=== PATIENT | male | born 1955 | race Caucasian/White ===

== ENCOUNTER 2016-04-10 12:42 | Inpatient (IN) | payer BC ==
--- NOTE | ~2016-04-10 | CN ---
Consultation Report [facility] [address] [place]. [address] NAME: BAILEY KOO : 51 STATUS : ADM IN PAT#: [id number] AGE: 60 ADM/REG DATE : 04/10/16 MR#: [id number] REPORT SERV DATE: 04/13/16 DICTATED BY: GLENDY PRABHAKAR DATE: 04/12/16 REPORT STATUS : Draft TRANSCRIBED BY: MODCorina DATE: 04/12/16 DATE OF CONSULTATION: CHIEF COMPLAINT: Abdominal pain with abdominal swelling and edema of the legs. HISTORY OF PRESENT ILLNESS: Bailey Koo is a 60-year-old, male with a history of adenocarcinoma of the lungs with prior lobectomy under the care of Dr. Catalan who has metastasis to the lymph nodes, and thyroid gland. The patient noted that over the past 6 weeks he is getting swelling in his abdomen with a gain of about 20 pounds with some shortness of breath and palpitations. He denies any fever, any joint pains. He admits to drinking alcohol for several years, stopped about two years ago. ALLERGIES: TO PENICILLIN, JOHN INHIBITOR, SULFA, ERYTHROMYCIN. HOME MEDICATIONS: Vitamin E, fish oil, pravastatin, Protonix, Roxicodone, albuterol, amlodipine, vitamin B12, vitamin D, and folic acid. REVIEW OF SYSTEMS: The patient complains of shortness of breath, edema of the legs, and swelling of the abdomen for the past 6 weeks. Denies any alcohol use. Denies any other problems. PAST MEDICAL HISTORY: Significant for COPD, hypertension, hyperlipidemia, possible diabetes mellitus type 2, has adenocarcinoma of the lung with metastasis in the thyroid gland, has had a lobectomy done. PAST SURGICAL HISTORY: Significant for lobectomy of the right lung, gallbladder removal, nasal septal repair, has had a colonoscopy about two years ago and was found to have about three polyps, has a history of fracture of the T6, T9, and T12 vertebrae. SOCIAL HISTORY: History of smoking but quit in 2011, has a history of alcohol use for several years. Stopped alcohol about two years ago. FAMILY HISTORY: Significant for coronary artery disease and cancer. PHYSICAL EXAMINATION: VITAL SIGNS: Temperature is normal. BP is 130/80. Peripheral pulses are well felt. NECK: Supple. Trachea is central. Carotids are well felt on both sides. CARDIOVASCULAR SYSTEM: S1 and S2 are heard. LUNGS: Trachea is central. Clear breath sounds are heard. LYMPH NODES: There are some lymph nodes palpable in the right side. ABDOMEN: Abdomen is distended. Liver is about 6-8 cm. Spleen is palpable. There is no other mass palpable, has ascites. MENTAL RETARDATION NURSE: Higher function, cranial nerves, and reflexes are normal. LAB: Show a WBC count of 4.3, hemoglobin hematocrit 11 and 34.1, AST and ALT are 53 and 26. Consultation Report [address] [address] NAME: BAILEY OKO : 53 STATUS : ADM IN PAT#: [id number] AGE: 60 ADM/REG DATE : 04/10/16 MR#: [id number] REPORT SERV DATE: 04/13/16 DICTATED BY: GLENDY PRABHAKAR DATE: 04/12/16 REPORT STATUS : Draft TRANSCRIBED BY: MODL DATE: 04/12/16 Sodium is 139, potassium is 3.8. BUN is 5 and creatinine is 0.72. A CT scan of the abdomen which shows ascites with cirrhotic changes in the liver, nodular densities in the lung bases, and has cystic bronchiectasis. IMPRESSION: 1. 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 2. Ascites with peripheral edema. 3. Possible diabetes mellitus type 2. 4. Lung cancer with metastasis in the thyroid. 5. Chronic obstructive pulmonary disease. 6. Hypertension. 7. Obesity. 8. Anemia. 9. Cellulitis of the abdominal wall. 10.Thyroid with metastasis. 11.Bipolar disorder. 12.Vitamin D deficiency. PLAN: Blood for hepatitis A, B, and C antibodies, alpha fetoprotein, iron TIBC, ferritin, Hemoccult stools. Discontinue oxycodone. Tramadol 50 mg p.o. t.i.d.; Protonix 40 mg p.o. b.i.d.; Lasix 40 mg p.o. daily 80 mg on Saturday, Saturday, and Saturday; Aldactone 100 mg p.o. b.i.d. and lactulose 30 mL p.o. b.i.d. Low salt, diabetic diet. FERNANDO/MODL Glendy Prabhakar M.D. / [id number] CC: MD Danielle Carr APN
--- NOTE | ~2016-04-10 | DS ---
Discharge Summary [facility] [address] [place]. [address] NAME: BAILEY QUESADA : 51 STATUS : DIS IN PAT#: [id number] AGE: 60 ADM/REG DATE : 04/10/16 MR#: [id number] REPORT SERV DATE: 04/13/16 DICTATED BY: MICHAEL MENA DATE: 04/13/16 REPORT STATUS : Draft TRANSCRIBED BY: MODL DATE: 04/13/16 ADMISSION DATE: 04/10/2016 DISCHARGE DATE: 04/13/2016 CHIEF COMPLAINT: Abdominal pain and swelling. DISCHARGING DIAGNOSES: 1. Cirrhosis of the liver, likely secondary to alcohol. 2. Ascites with peripheral edema. 3. History of lung cancer with metastases to the thyroid. 4. Obesity. 5. Hypertension. 6. History of chronic obstructive pulmonary disease. HISTORY OF PRESENT ILLNESS: Please see full H and P by Dr. Epps for details regarding initial presentation. HOSPITAL COURSE: 1. Liver cirrhosis which is a new diagnosis. The patient presents with ascites and peripheral edema. He was admitted to the hospital, had paracentesis of approximately 6 L. In addition, he was started on Aldactone and Lasix. At this point, he has not tolerated the addition of lactulose which was added by Dr. Dyson. This caused nausea and vomiting. We will not have additional therapies at this time given he has not had issues with hyperammonemia at this point. He can follow up with Dr. Dyson as an outpatient closely to determine if additional treatment such as rifaximin is needed at this time. Given the new addition of Lasix and Aldactone, we will have him follow up with primary care. In the interim, he will need blood work at this appointment. We have counseled him on cessation of alcohol as well as oxycodone; however, he has declined changing to tramadol given his issues with previous difficulty getting his pain controlled. 2. Chronic pain. The patient is adamant about continuing his oxycodone. He can discuss this with outpatient providers. 3. History of lung cancer with prior lobectomy and chemo. He can follow up with Dr. Catalan as previously scheduled. 4. Hypertension. We will hold his Norvasc at this time given addition of Aldactone and Lasix and followup with primary care. 5. Diet-controlled pre diabetes. Follow up with primary care. 6. COPD. Continue outpatient regimen. 7. Hypoalbuminemia likely due to cirrhosis. Again the patient will be on diuretics and follow up with outpatient, Dr. Dyson. 8. Hypothyroidism. Continue outpatient levothyroxine. 9. Obesity. His BMI is 38. DISCHARGE MEDICATIONS: Lasix 40 mg daily; Aldactone 50 mg b.i.d.; vitamin B12, vitamin D; Protonix 40 mg daily; pravastatin 40 mg daily; vitamin E; Roxicodone 15 mg 4 times a day; folic acid 1 mg daily; albuterol p.r.n.; and fish oil 2400 p.o. daily. Discharge Summary [address] [address] NAME: BAILEY QUESADA : 53 STATUS : DIS IN PAT#: [id number] AGE: 60 ADM/REG DATE : 04/10/16 MR#: [id number] REPORT SERV DATE: 04/13/16 DICTATED BY: MICHAEL MENA DATE: 04/13/16 REPORT STATUS : Draft TRANSCRIBED BY: DORINA DATE: 04/13/16 PERTINENT IMAGIN. This admission included CT abdomen and pelvis without contrast which showed moderate to large amount of ascites throughout the abdomen and pelvis. Cirrhotic appearance of the liver with splenomegaly. There is also enlargement of the main portal vein up to 15 mm compatible with portal hypertension. 2. Diffuse subcutaneous edema with more localized edema in the periumbilical region, possibly representing some localized cellulitis. There is a small fluid-containing umbilical hernia without bowel involvement. 3. Multiple nodular densities at the lung bases several for which are centrally aerated and some areas have the appearance of cystic bronchiectasis. The largest discrete solid nodule appears up to 5 x 11 mm in the left lower lobe. Suggest followup CT scan of chest for further evaluation when clinically appropriate. Although the images are currently not available for comparison, these findings are not described on a CT scan in 2014. DISPOSITION: Home. FOLLOWUP: Follow up will be with primary care in 5 to 7 days; Dr. Dyson hopefully in 2 to 3 weeks; and then Dr. Catalan as previously scheduled. Time spent on discharge is greater than 30 minutes. COURTNEY/DORINA Michael Mena MD / [id number] CC: MD FREDERIC Carr
--- NOTE | ~2016-04-10 | HP ---
History And Physical [address] [place]. [address] NAME: BAILEY QUESADA : 51 STATUS : ADM IN PAT#: [id number] AGE: 60 ADM/REG DATE : 04/10/16 MR#: [id number] REPORT SERV DATE: 04/10/16 DICTATED BY: MATTI VINCENT DATE: 04/10/16 REPORT STATUS : Draft TRANSCRIBED BY: MODL DATE: 04/10/16 DATE OF ADMISSION: 04/10/2016 CHIEF COMPLAINT: Abdominal pain and abdominal swelling. HISTORY OF PRESENT ILLNESS: The patient is a 60-year-old male with past medical history of adenocarcinoma of lungs with prior lobectomy, still under care of Dr. Catalan, prior chemo, but does have metastases to lymph nodes and thyroid per the patient, who reports that over the last six weeks he has noticed that he has had increased stomach swelling, thought it was due to indigestion and taken [id number] medications without improvement, but he has also noted approximately 20-pound weight gain since his last PCP visits. Since then, he has also noted with intermittent abdominal pain as a moderate with cramping severity, no radiation, but has had nausea and vomiting, decreased p.o. intake and with shortness of breath, fever, chills, wheezing, cough, worsened with palpation. No relieving symptoms. Symptom is still currently worse as the patient has had increased swelling. He was told that he had gas symptoms at outside facility, but here noted to have possible new diagnosis of cirrhosis on imaging with positive fluid wave. No signs of peritonitis at this time. No GI history. Has stopped smoking in 2011 and last alcohol use approximately two years ago. No prior hepatitis history that the patient recalls. ALLERGIES: PENICILLIN, JOHN INHIBITOR, SULFA, ERYTHROMYCIN. HOME MEDICATIONS: Albuterol, amlodipine, vitamin B12, vitamin D, folic acid, Roxicodone, Protonix, pravastatin, vitamin E, and fish oil. ADDITIONAL REVIEW OF SYSTEMS: A 10-point review of systems negative except that noted in the HPI. PAST MEDICAL HISTORY: COPD, hypertension, hyperlipidemia, headache, reflux, history of bipolar, type 2 diabetes, however, the patient reports this is all possible prediabetic as the patient is only diet controlled and has not required any medication. Blood sugars typically range less than 120. Has had adenocarcinoma, lung cancer with surgical history of lobectomy, gallbladder, and nasal septal repair and skin cancer removal. The patient has had history of T6, T9, and T12 broken bones. SOCIAL HISTORY: Prior smoking history, but quit in 2011. Last alcohol use was two years ago and no illicits. FAMILY HISTORY: Heart disease and cancer. The patient is unknown what kind of cancers. The patient's PCP is nurse practitioner, Danielle Joaquin. PHYSICAL EXAMINATION: VITAL SIGNS: The patient's blood pressure 132/71, temperature 98, pulse 97, respirations 16, O2 saturations 98% on room air. GENERAL: No acute distress. Calm, pleasant, obese, well developed, well nourished. History And Physical [address] [address] NAME: BAILEY QUESADA : 53 STATUS : ADM IN [facility]#: [id number] AGE: 60 ADM/REG DATE : 04/10/16 MR#: [id number] REPORT SERV DATE: 04/10/16 DICTATED BY: MATTI VINCENT DATE: 04/10/16 REPORT STATUS : Draft TRANSCRIBED BY: DORINA DATE: 04/10/16 EYES: No scleral icterus. EOMI. ENT: Nares patent. Tongue midline. Moist mucous membranes. RESPIRATORY: Clear to auscultation. No wheezes or rales. CV: Regular rate. No rubs or gallops. GI: Soft, mildly distended. Does have a positive fluid wave with cellulitic changes on anterior lower abdomen without welts. Bowel sounds are still positive, but distant. Negative rebound. : Deferred. MUSCULOSKELETAL: Moves all extremities x4, but does have edema in bilateral lower extremities. SKIN: Warm and dry. LYMPH: Does have cervical lymph node enlargement on the right side visible and palpable and bilateral leg edema of 1+. HEME: No bleeding or bruising. NEURO: Alert and oriented. Moves all extremities x4. PSYCH: Appropriate mood and affect. Sensation is grossly intact. No asterixis. MENTAL STATUS: Normal vocal pablo. Symmetrical smile. Tongue midline. LABORATORY DATA: BNP 68. CT abdomen and pelvis, moderate amount of ascites, cirrhotic changes in liver with main portal vein up to 15 mm, subcutaneous edema, localized cellulitis. Nodular densities in lung bases, several, which are essentially aerated with cystic bronchiectasis. CMP revealed a sodium of 139, potassium 3.8, chloride 105, bicarb 29, BUN and creatinine 5 and 0.72, glucose 123. AST and ALT 53 and 26, lipase 68, alkaline phosphatase 148 to 140, globulin 3.6, and albumin 2.2. CBC: WBC count 4.3, H and H 11 and 34.1, platelets 149. EKG: None currently on chart. ASSESSMENT AND PLAN: 1. Abdominal studies. 2. Likely new cirrhosis. 3. Lung cancer with reported metastatic history, prior lobectomy and status post chemo. Followed by Dr. Catalan of [facility]. 4. Hypertension. 5. Likely pre-diabetes history. 6. Chronic obstructive pulmonary disease history. 7. Hyperlipidemia. 8. Bipolar history. 9. Hypoalbuminemia. 10.Anemia. 11.Thyroid metastases per the patient. 12.Cellulitis on abdominal wall. PLAN: 1. For abdominal ascites, GI consult. Check hepatitis panel. No prior history. Last History And Physical [address] [address] NAME: BAILEY QUESADA : 51 STATUS : ADM IN PAT#: [id number] AGE: 60 ADM/REG DATE : 04/10/16 MR#: [id number] REPORT SERV DATE: 04/10/16 DICTATED BY: MATTI VINCENT DATE: 04/10/16 REPORT STATUS : Draft TRANSCRIBED BY: MODCorina DATE: 04/10/16 ETOH use or alcohol use over two years ago, but did have prior alcohol history. No peritoneal signs or symptoms currently at this time. 2. Cirrhosis. Check hepatitis panel and LFTs. Has noted a 20-pound weight gain. Has not had fluid restriction prior to this. There is no prior diagnosis of cirrhosis. We will have GI evaluate, paracentesis, IR evaluation. 3. Lung cancer. Prior lobectomy, chemo. Does have positive fluid and cirrhosis. Follow up with Dr. Catalan with [facility]. 4. Hypertension. On medications. We will continue to monitor. 5. Pre-diabetes. Diet controlled. Blood sugar was typically less than 120. Monitor before meals and h.s. and discontinue Accu-Cheks if remains stable. 6. Chronic obstructive pulmonary disease, non-O2 dependent. Does take p.r.n. albuterol, p.r.n. medications. Quit tobacco in 2011. 7. Hyperlipidemia. Diet and medication controlled. 8. Bipolar history, appears stable at this time. 9. Hypoalbuminemia, likely secondary to abdominal ascites. Workup for underlying possible new cirrhosis. 10.Anemia. Monitor iron studies. 11.Thyroid medications per the patient with lymph node involvement. We will check TSH. 12.Cellulitis changes. The patient is allergic to multiple medications including sulfa and penicillins with welt history. We will start with clindamycin and monitor clinical signs and symptoms. All questions answered of the patient and family. I anticipate greater than two midnight inpatient stay. DDN/MODL Matti Vincent MD / [id number] CC: MD FRANK Miramontes BRENDA L
[2016-04-10 12:16] LABS: BASOPHILS 0.2 %; BASOPHILS ABSOLUTE 0.01 10/3/uL (0.0-0.16); EOSINOPHILS 0.7 %; EOSINOPHILS ABSOLUTE 0.03 10/3/uL (0.0-0.53); IMMATURE GRANULOCYTES 0.2 %; IMMATURE GRANULOCYTES ABSOLUTE 0.01 10/3/uL (0.0-0.11); LYMPHOCYTES 25.8 %; MEAN CORPUS HGB CONC 32.3 g/dL (32.0-36.0); MEAN CORPUSCULAR HEMOGLOB 28.9 pg (26.0-34.0); MEAN CORPUSCULAR VOLUME 89.7 fL (80-100); MEAN PLATELET VOLUME 10.7 fL (9.2-13.0); MONOCYTES 12.9 %; MONOCYTES ABSOLUTE 0.55 10/3/uL (0.21-1.20); NEUTROPHILS 60.2 %; NEUTROPHILS ABSOLUTE 2.56 10/3/uL (2.02-8.40); PLATELET COUNT 149 10/3/uL (150-400); RBC DISTRIBUTION WIDTH 16.7 % (12.0-16.0); WHITE BLOOD CELLS 4.3 10/3/uL (4.5-10.5)
[2016-04-10 12:18] LABS: ER CBC TAT 0 Hrs 04 MinsNP; HEMATOCRIT 34.1 % (40.0-51.0); MANUAL DIFF NO %
[2016-04-10 12:33] LABS: A/G RATIO 0.6 (0.7-1.9); ALBUMIN 2.2 G/DL (3.5-5.0); ALKALINE PHOSPHATASE 140 U/L (45-117); BUN (BLOOD UREA NITROGEN) 5 MG/DL (6-23); CALCIUM, SERUM 8.7 MG/DL (8.5-10.4); CHLORIDE, SERUM 105 MMOL/L (96-112); CO2 (CARBON DIOXIDE) 29 MMOL/L (24-34); CREATININE 0.72 MG/DL (0.70-1.30); GFR AFRICAN AMERICAN 116 ML/MIN (>=60); GFR NON AFRICAN AMERICAN 100 ML/MIN (>=60); GLOBULIN 3.6 G/DL (2.5-4.1); GLUCOSE, SERUM 123 MG/DL (60-99); POTASSIUM, SERUM 3.8 MMOL/L (3.5-5.3); SGOT(AST) 53 U/L (5-40); SGPT(ALT) 26 U/L (5-65); SODIUM, SERUM 139 MMOL/L (135-148); TOTAL BILIRUBIN 0.8 MG/DL (0-1.2); TOTAL PROTEIN 5.8 G/DL (6.0-8.5)
[~2016-04-10 12:42] MED LIST: FOLIC PO; NORV5 PO; PRAVACHOL40 MG PO; PROTONIX PO; SEV VITAMINS; VENTOLIN HFA INH; VITAMIN B 12 IM
[2016-04-10] MEDS ORDERED: NORV5 PO (15:43)
[2016-04-10] MEDS ORDERED: ROXICODONE15 MG PO (15:44)
[2016-04-10] MEDS ORDERED: B121000P IM (15:48)
[2016-04-10] MEDS ORDERED: VITD PO (15:49)
[2016-04-10] MEDS ORDERED: PROAIR HFA INH (15:49)
[2016-04-10] MEDS ORDERED: PRAVACHOL40 MG PO (15:49)
[2016-04-10] MEDS ORDERED: FOLIC PO (15:49)
[2016-04-10] MEDS ORDERED: VITE1000 PO (15:54)
[2016-04-10] MEDS ORDERED: FISH OIL PO (15:54)
[2016-04-10] MEDS ORDERED: PROTONIX PO (15:55)
[2016-04-10 18:36] LABS: WBC (NOT ORDERED) (RFLEX) 0 (0-5)
[2016-04-10 18:45] LABS: ASCORBIC ACID (UR NOT ORDER) NEG (NEG); BILIRUBIN, URINE NEGATIVE (NEG); KETONE, URINE TRACE MG/DL (NEG); LEUKOCYTE ESTERASE(NOT OR NEG (NEG)
[2016-04-10 19:00] LABS: BASOPHILS 0.3 %; BASOPHILS ABSOLUTE 0.01 10/3/uL (0.0-0.16); EOSINOPHILS 1.3 %; EOSINOPHILS ABSOLUTE 0.05 10/3/uL (0.0-0.53); HEMATOCRIT 35.1 % (40.0-51.0); HEMOGLOBIN 11.1 g/dL (13.6-17.8); IMMATURE GRANULOCYTES 0.3 %; IMMATURE GRANULOCYTES ABSOLUTE 0.01 10/3/uL (0.0-0.11); LYMPHOCYTES 29.4 %; LYMPHOCYTES ABSOLUTE 1.17 10/3/uL (0.67-4.30); MEAN CORPUS HGB CONC 31.6 g/dL (32.0-36.0); MEAN CORPUSCULAR HEMOGLOB 28.6 pg (26.0-34.0); MEAN CORPUSCULAR VOLUME 90.5 fL (80-100); MEAN PLATELET VOLUME 10.1 fL (9.2-13.0); MONOCYTES 13.6 %; MONOCYTES ABSOLUTE 0.54 10/3/uL (0.21-1.20); NEUTROPHILS 55.1 %; PLATELET COUNT 150 10/3/uL (150-400); RBC DISTRIBUTION WIDTH 16.8 % (12.0-16.0); RED CELL COUNT 3.88 10/6/uL (4.7-6.1)
[2016-04-10 19:02] LABS: MANUAL DIFF NO %
[2016-04-10 19:24] LABS: % IRON SAT 16 % (20-50); A/G RATIO 0.6 (0.7-1.9); ALBUMIN 2.1 G/DL (3.5-5.0); ALKALINE PHOSPHATASE 133 U/L (45-117); BUN (BLOOD UREA NITROGEN) 6 MG/DL (6-23); CALCIUM, SERUM 9.1 MG/DL (8.5-10.4); CHLORIDE, SERUM 104 MMOL/L (96-112); CO2 (CARBON DIOXIDE) 30 MMOL/L (24-34); CREATININE 0.67 MG/DL (0.70-1.30); FERRITIN 167 NG/ML (26-388); GFR AFRICAN AMERICAN 119 ML/MIN (>=60); GFR NON AFRICAN AMERICAN 103 ML/MIN (>=60); GLOBULIN 3.8 G/DL (2.5-4.1); IRON BINDING CAPACITY 195 MCG/DL (250-450); IRON, SERUM 32 MCG/DL (35-150); PHOSPHORUS, SERUM 2.6 MG/DL (2.5-4.5); POTASSIUM, SERUM 3.9 MMOL/L (3.5-5.3); SGOT(AST) 51 U/L (5-40); SGPT(ALT) 25 U/L (5-65); SODIUM, SERUM 140 MMOL/L (135-148); TOTAL BILIRUBIN 0.9 MG/DL (0-1.2); TOTAL PROTEIN 5.9 G/DL (6.0-8.5)
[2016-04-10 19:27] LABS: GLUCOSE, SERUM 97 MG/DL (60-99)
[2016-04-10 20:15] LABS: PROCALCITONIN 0.26 ng/mL (<0.5)
[2016-04-11 06:35] LABS: BASOPHILS 0.5 %; BASOPHILS ABSOLUTE 0.02 10/3/uL (0.0-0.16); EOSINOPHILS 1.7 %; EOSINOPHILS ABSOLUTE 0.07 10/3/uL (0.0-0.53); HEMATOCRIT 32.5 % (40.0-51.0); HEMOGLOBIN 10.3 g/dL (13.6-17.8); IMMATURE GRANULOCYTES 0.2 %; IMMATURE GRANULOCYTES ABSOLUTE 0.01 10/3/uL (0.0-0.11); LYMPHOCYTES 32.5 %; LYMPHOCYTES ABSOLUTE 1.37 10/3/uL (0.67-4.30); MEAN CORPUS HGB CONC 31.7 g/dL (32.0-36.0); MEAN CORPUSCULAR HEMOGLOB 28.5 pg (26.0-34.0); MEAN PLATELET VOLUME 10.4 fL (9.2-13.0); MONOCYTES 17.5 %; MONOCYTES ABSOLUTE 0.74 10/3/uL (0.21-1.20); NEUTROPHILS 47.6 %; NEUTROPHILS ABSOLUTE 2.01 10/3/uL (2.02-8.40); PLATELET COUNT 153 10/3/uL (150-400); RBC DISTRIBUTION WIDTH 16.8 % (12.0-16.0); RED CELL COUNT 3.61 10/6/uL (4.7-6.1); WHITE BLOOD CELLS 4.2 10/3/uL (4.5-10.5)
[2016-04-11 06:36] LABS: MANUAL DIFF NO %
[2016-04-11 06:46] LABS: A/G RATIO 0.5 (0.7-1.9); ALBUMIN 1.9 G/DL (3.5-5.0); ALKALINE PHOSPHATASE 125 U/L (45-117); BUN (BLOOD UREA NITROGEN) 6 MG/DL (6-23); CALCIUM, SERUM 8.9 MG/DL (8.5-10.4); CHLORIDE, SERUM 104 MMOL/L (96-112); CO2 (CARBON DIOXIDE) 29 MMOL/L (24-34); CREATININE 0.75 MG/DL (0.70-1.30); DIRECT BILIRUBIN 0.2 MG/DL (0.0-0.4); GFR AFRICAN AMERICAN 114 ML/MIN (>=60); GFR NON AFRICAN AMERICAN 98 ML/MIN (>=60); GLOBULIN 3.5 G/DL (2.5-4.1); GLUCOSE, SERUM 104 MG/DL (60-99); INDIRECT BILIRUBIN(NOT ORDER) 0.8 MG/DL (0.1-0.9); POTASSIUM, SERUM 3.7 MMOL/L (3.5-5.3); SGOT(AST) 44 U/L (5-40); SGPT(ALT) 23 U/L (5-65); SODIUM, SERUM 142 MMOL/L (135-148); TOTAL PROTEIN 5.4 G/DL (6.0-8.5)
[2016-04-11 08:23] LABS: INTERNATIONAL NORMAL RATI 1.4 UNITS (-); PROTIME (NOT ORD) 17.1 SEC (12.0-14.5)
[2016-04-11 08:32] LABS: ALBUMIN 1.9 G/DL (3.5-5.0); TOTAL PROTEIN 5.4 G/DL (6.0-8.5)
[2016-04-12 10:38] LABS: BUN (BLOOD UREA NITROGEN) 7 MG/DL (6-23); CALCIUM, SERUM 8.6 MG/DL (8.5-10.4); CHLORIDE, SERUM 101 MMOL/L (96-112); CO2 (CARBON DIOXIDE) 30 MMOL/L (24-34); CREATININE 0.71 MG/DL (0.70-1.30); GFR AFRICAN AMERICAN 117 ML/MIN (>=60); GFR NON AFRICAN AMERICAN 101 ML/MIN (>=60); GLUCOSE, SERUM 138 MG/DL (60-99); POTASSIUM, SERUM 3.9 MMOL/L (3.5-5.3); SODIUM, SERUM 140 MMOL/L (135-148)
[2016-04-12 20:16] LABS: INTERNATIONAL NORMAL RATI 1.4 UNITS (-); PARTIAL THROMBO TIME 40.3 SEC (22.5-37.2); PROTIME (NOT ORD) 17.3 SEC (12.0-14.5)
[2016-04-12 20:26] LABS: ALPHA FETOPROTEIN (TUMOR) 9.8 NG/ML (< 8.0)
[2016-04-13 05:34] LABS: BUN (BLOOD UREA NITROGEN) 7 MG/DL (6-23); CALCIUM, SERUM 8.6 MG/DL (8.5-10.4); CHLORIDE, SERUM 104 MMOL/L (96-112); CO2 (CARBON DIOXIDE) 30 MMOL/L (24-34); CREATININE 0.79 MG/DL (0.70-1.30); GFR AFRICAN AMERICAN 112 ML/MIN (>=60); GFR NON AFRICAN AMERICAN 96 ML/MIN (>=60); GLUCOSE, SERUM 118 MG/DL (60-99); POTASSIUM, SERUM 3.9 MMOL/L (3.5-5.3); SODIUM, SERUM 141 MMOL/L (135-148)
[2016-04-13 09:30] LABS: HEPATITIS B SURFACE ANTIGEN NON-REACTIVE (NON-REACT)
[2016-04-13 09:55] LABS: HEPATITIS C ANTIBODY NON-REACTIVE (NON-REACT)
[2016-04-13 09:56] LABS: HEPATITIS B CORE AB IGM NON-REACTIVE (NON-REAC)
[2016-04-13 09:58] LABS: HEP A ANTIBODY IGM NON-REACTIVE (NON-REACT)
[2016-04-13] MEDS ORDERED: SPIRO50 PO (11:42)
[2016-04-13] MEDS ORDERED: L40 PO (11:42)
== END 2016-04-13 12:09 | disposition home or self-care (01) | DRG 433 ==
LOC: ER 12:42 → 4EA 16:23
PROVIDERS: Internal Medicine; Internal Medicine Gastroenterology; Physician Assistant; Student in an Organized Health Care Education/Training Program
PROC: 0W9G30Z Drainage of Peritoneal Cavity with Drainage Device, Percutaneous Approach (ICD-10-PCS; principal; 2016-04-11)
DX: K70.31 Alcoholic cirrhosis of liver with ascites (principal); C34.90 Malignant neoplasm of unspecified part of unspecified bronchus or lung; C77.9 Secondary and unspecified malignant neoplasm of lymph node, unspecified; C79.89 Secondary malignant neoplasm of other specified sites; E88.09 Other disorders of plasma-protein metabolism, not elsewhere classified; Z68.41 Body mass index [BMI] 40.0-44.9, adult; J44.9 Chronic obstructive pulmonary disease, unspecified; L03.311 Cellulitis of abdominal wall; I10 Essential (primary) hypertension; E78.5 Hyperlipidemia, unspecified; F31.9 Bipolar disorder, unspecified; E66.9 Obesity, unspecified
CPT/HCPCS: 49083; 71010; 74176; 80048; 80053; 80074; 81001; 82040; 82105; 82140; 82248; 82272; 82728; 82962; 83036; 83540; 83550; 83605; 83690; 83735; 83880; 84100; 84145; 84155; 84443; 85025; 85610; 85730; 87040; 99285; A9270-GY; J2405

== ENCOUNTER 2016-06-07 22:43 | Emergency (ER) | payer BC ==
[2016-06-07 18:48] LABS: BASOPHILS 0 %; EOSINOPHILS 0.5 %; EOSINOPHILS ABSOLUTE 0.01 10/3/uL (0.0-0.53); HEMOGLOBIN 9.2 g/dL (13.6-17.8); LYMPHOCYTES 51.4 %; LYMPHOCYTES ABSOLUTE 0.94 10/3/uL (0.67-4.30); MEAN CORPUS HGB CONC 32.6 g/dL (32.0-36.0); MEAN CORPUSCULAR HEMOGLOB 28.4 pg (26.0-34.0); MONOCYTES ABSOLUTE 0.53 10/3/uL (0.21-1.20); NEUTROPHILS 19.1 %; NEUTROPHILS ABSOLUTE 0.35 10/3/uL (2.02-8.40); RBC DISTRIBUTION WIDTH 15.9 % (12.0-16.0); RED CELL COUNT 3.24 10/6/uL (4.7-6.1)
[2016-06-07 18:50] LABS: ER CBC TAT 0 Hrs 10 Mins; HEMATOCRIT 28.2 % (40.0-51.0); PLATELET COUNT 104 10/3/uL (150-400); WHITE BLOOD CELLS 1.8 10/3/uL (4.5-10.5)
[2016-06-07 18:51] LABS: MANUAL DIFF NO %
[2016-06-07 18:55] LABS: INTERNATIONAL NORMAL RATI 1.4 UNITS (-); PROTIME (NOT ORD) 16.9 SEC (12.0-14.5)
[2016-06-07 19:03] LABS: BUN (BLOOD UREA NITROGEN) 10 MG/DL (6-23); CHEST PAIN PROFILE TAT 0 Hrs 23 Mins; CHLORIDE, SERUM 103 MMOL/L (96-112); CO2 (CARBON DIOXIDE) 26 MMOL/L (24-34); CREATININE 0.96 MG/DL (0.70-1.30); GFR AFRICAN AMERICAN 98 ML/MIN (>=60); GFR NON AFRICAN AMERICAN 84 ML/MIN (>=60); GLUCOSE, SERUM 136 MG/DL (60-99); SODIUM, SERUM 136 MMOL/L (135-148); TROPONIN I <0.02 NG/ML (<0.05)
[2016-06-07 19:18] LABS: EOSINOPHILS 2 %; EOSINOPHILS ABSOLUTE (CALC) 0.04 10/3/uL (0.0-0.53); ER DIFF TAT 0 Hrs 38 Mins; LYMPHOCYTES 39 %; MONOCYTES 29 %; MONOCYTES ABSOLUTE (CALC) 0.52 10/3/uL (0.21-1.20); NEUTROPHILS ABSOLUTE (CALC) 0.54 10/3/uL (2.02-8.40); SEGMENTED NEUTROPHIL (0) 30 %; TOTAL NUCLEATED CELLS 100
[2016-06-07 19:19] LABS: OVALOCYTES 1+ (3-10/OIF) (0-2/OIF); PLATELET ESTIMATE SLT DEC (ADEQUATE)
[~2016-06-07 22:43] MED LIST changes: +B121000P IM; +FISH OIL PO; +L40 PO; +PROAIR HFA INH; +ROXICODONE15 MG PO; +SPIRO50 PO; +VITD PO; +VITE1000 PO
== END 2016-06-07 23:53 | disposition home or self-care (01) ==
LOC: ER 22:43
PROVIDERS: Emergency Medicine
DX: J32.9 Chronic sinusitis, unspecified (principal); C34.92 Malignant neoplasm of unspecified part of left bronchus or lung; G43.909 Migraine, unspecified, not intractable, without status migrainosus; J44.9 Chronic obstructive pulmonary disease, unspecified; I10 Essential (primary) hypertension; K21.9 Gastro-esophageal reflux disease without esophagitis; F31.9 Bipolar disorder, unspecified; Z87.891 Personal history of nicotine dependence; Z88.0 Allergy status to penicillin; Z88.2 Allergy status to sulfonamides; Z88.1 Allergy status to other antibiotic agents; Z79.899 Other long term (current) drug therapy
CPT/HCPCS: 70450; 71020; 80048; 83735; 84484; 85025; 85610; 85730; 93005; 96372; 99285; A9270-GY; J1885

== ENCOUNTER 2016-07-24 09:05 | Inpatient (IN) | payer BC ==
--- NOTE | ~2016-07-24 | CN ---
Consultation Report [facility] [address] [place]. [address] NAME: BAILEY KOO : 51 STATUS : ADM IN PAT#: [id number] AGE: 60 ADM/REG DATE : 07/24/16 MR#: [id number] REPORT SERV DATE: 07/25/16 DICTATED BY: GLENDY PRABHAKAR DATE: 07/25/16 REPORT STATUS : Draft TRANSCRIBED BY: MODL DATE: 07/25/16 CONSULTATION DATE OF CONSULTATION: CURRENT COMPLAINTS: History of ascites secondary to alcohol with distention of the abdomen. HISTORY OF PRESENT ILLNESS: Mr. Koo is a pleasant 60-year-old gentleman who has a history of cirrhosis of the liver secondary to alcohol and ascites. He also has cancer of the lung with multiple medications and enlarging nodules, history of hypertension, hyperlipidemia, and some renal insufficiency, admitted with complaints of having progressive distention of the abdomen and some shortness of breath. Denies any abdominal pain. Has no nausea or vomiting. Has no diarrhea or melena. PREVIOUS MEDICAL HISTORY: Significant for malignant neoplasm of the upper lobes of the right bronchus and lungs, which is increasing in size; cirrhosis of the liver, probably secondary to alcohol; low back pain; anxiety; hypertension; hyperlipidemia. PAST SURGICAL HISTORY: None. ALLERGIES: JOHN INHIBITORS, ELLIPTA, ERYTHROMYCIN BASE, PENICILLIN, SPIRIVA HANDIHALER, AND SULFA ANTIBIOTICS. CURRENT MEDICATIONS: Amlodipine 5 mg once a day, calcitonin nasal spray, cyanocobalamin 1000 mcg/mL, cyclobenzaprine 10 mg per day, diazepam 5 mg one tablet q.12 hours, fish oil 1 capsule per day, folic acid 1 mg per day, inhaler 2 puffs q.12 hours, Lasix 40 mg per day, oxycodone 15 mg one tablet 4 times a day, pantoprazole sodium 40 mg p.o. per day, pravastatin 20 mg per day, Proventil inhaler, Seroquel 100 mg orally once a day, and Aldactone 50 mg per day. SOCIAL HISTORY: He smoked for about 30 years, stopped smoking about 4 years ago. He has been a drinker before, but currently has stopped drinking. FAMILY HISTORY: Significant for coronary artery disease, hypertension, and diabetes. REVIEW OF SYSTEMS: The patient complains feeling weak, having some shortness of breath, occasional breathing problems, has distention of the abdomen. Denies any nausea, vomiting, or diarrhea. PHYSICAL EXAMINATION: VITAL SIGNS: Blood pressure 120/60, temperature is normal, and pulse is 80 per minute. NECK: Supple. Trachea is central. Carotids well felt on both sides. ABDOMEN: Distended. Has ascites. Liver is not palpable. Spleen is palpable at about 4 cm below the left costal margin. Consultation Report [address] [place]. [address] NAME: BAILEY KOO : 51 STATUS : ADM IN [facility]#: [id number] AGE: 60 ADM/REG DATE : 07/24/16 MR#: [id number] REPORT SERV DATE: 07/25/16 DICTATED BY: GLENDY PRABHAKAR DATE: 07/25/16 REPORT STATUS : Draft TRANSCRIBED BY: DORINA DATE: 07/25/16 CARDIOVASCULAR SYSTEM: [place] is felt in the sixth intercostal space. S1 and S2 are heard. There is no murmur. GRAIN INSPECTOR: Higher function, cranial nerves, and reflexes are normal. LABORATORY DATA: Sodium is 135, potassium is 4.1, bicarb is 38, BUN is 10, creatinine is 0.88, glucose is 107. WBC count is 4.2, hemoglobin is 9.9, and platelet count is 103. TSH is 2.4. IMPRESSION: 1. Cirrhosis of the liver, probably secondary to alcohol. 2. Ascites. 3. Lung cancer with metastases. 4. Hypertension. 5. Vitamin D deficiency. 6. Hyperlipidemia. 7. Anemia. 8. Thrombocytopenia. PLAN: 1. Paracentesis fluid for analysis. 2. Salt-poor albumin 75 g IV after the paracentesis. 3. Lasix 40 mg p.o. every day and Aldactone 100 mg p.o. every day. 4. 2-g sodium diet. 5. Lactulose 30 mL p.o. b.i.d. FERNANDO/DORINA Glendy Prabhakar M.D. / [id number] CC: MD FRANK Pradhan BRENDA L
--- NOTE | ~2016-07-24 | DS ---
Discharge Summary [facility] [place]. [address] NAME: BAILEY QUESADA : 51 STATUS : ADM IN PAT#: [id number] AGE: 60 ADM/REG DATE : 07/24/16 MR#: [id number] REPORT SERV DATE: 07/26/16 DICTATED BY: POWER MABRY DATE: 07/26/16 REPORT STATUS : Draft TRANSCRIBED BY: MODL DATE: 07/26/16 ADMISSION DATE: 07/24/2016 DISCHARGE DATE: 07/26/2016 REASON FOR ADMISSION: Worsening ascites. HISTORY OF PRESENT ILLNESS: Please refer Dr. Denisa Thomas's history and physical dated 07/24/2016, for complete details regarding the patient's admission. In brief, the patient was admitted to the Hospitalist Service for management of his ascites. HOSPITAL COURSE: The patient had an uncomplicated hospital course. Dr. Thomas had admitted the patient, started him on IV Bumex and added oral Aldactone. Dr. Thomas had consulted Dr. Dyson for further recommendation. Dr. Dyson had recommended giving salt-poor albumin and arranged for interventional radiologist to perform a large volume paracentesis. The patient had 11.1 liters removed on 07/25/2016. He is feeling much better. The fluid analysis did not show any evidence of spontaneous bacterial peritonitis. The patient was requesting to go home. [facility] was consulted for his history of metastatic lung cancer. The patient initially had a CT scan of his abdomen and pelvis in the ER, which showed continued bilateral diffuse subcentimeter cavitary nodules with solid 1.4 cm nodule in the central left base; large volume ascites; splenomegaly; suspected underlying cirrhosis; chronic lumbar fractures. Therefore, Dr. Thomas had ordered a followup CT scan of the chest without contrast, which showed multiple bilateral pulmonary nodules consistent with metastases, some of these are cavitated. There is mediastinal and right axillary adenopathy, minimal right pleural fluid. There is some ascites. The patient has reached maximal hospitalization. He is requesting to go home. He is not on any oxygen, he feels great, no abdominal pain. No issues with hypotension after his large volume ascites. The patient will be discharged today in stable condition to follow up with Dr. Dyson and Dr. Catalan. DISCHARGE DIAGNOSES: 1. Alcoholic cirrhosis with ascites status post 11.1 liters removed from paracentesis. 2. Pancytopenia secondary to alcoholic cirrhosis with ascites. 3. Metastatic lung cancer. 4. Chronic obstructive pulmonary disease without exacerbation. 5. Hypertension. 6. Morbid obesity. PROCEDURES: Include CT scan of the abdomen and pelvis without contrast. CT scan of chest without contrast. CONSULTATION: Dr. Ackerman's, covering for Dr. Catalan and Dr. Dyson. DISCHARGE MEDICATIONS: Include amlodipine 5 mg once a day, vitamin B 1000 mcg every 30 days, vitamin D on Sundays, folic acid 1 mg daily, magnesium oxide 400 mg every morning, fish oil daily, Protonix 40 mg every morning, potassium chloride 10 mEq every morning, pravastatin 40 mg every morning, albuterol p.r.n., Roxicodone 15 mg p.r.n. pain, vitamin E, spironolactone Discharge Summary [address] [address] NAME: BAILEY QUESADA : 51 STATUS : ADM IN [facility]#: [id number] AGE: 60 ADM/REG DATE : 07/24/16 MR#: [id number] REPORT SERV DATE: 07/26/16 DICTATED BY: POWER MABRY DATE: 07/26/16 REPORT STATUS : Draft TRANSCRIBED BY: MODL DATE: 07/26/16 100 mg daily, diazepam 5 mg p.r.n., Mucinex p.r.n., magnesium citrate p.r.n., albuterol p.r.n., Lasix 40 mg once a day. Please note, the addition of Lasix and Aldactone and the discontinuation of torsemide. Spending over 30 minutes in discharge planning and coordination of care. DICTATED BY: MD WILLIAM Pradhan/ORENL Power Mabry MD / [id number] CC: MD FRANK Pradhan BRENDA L Jay Philippose, M.D. An Tran, MD
--- NOTE | ~2016-07-24 | HP ---
History And Physical [id number] [facility] [place]. [address] NAME: BAILEY QUESADA : 51 STATUS : ADM IN PAT#: [id number] AGE: 60 ADM/REG DATE : 07/24/16 MR#: [id number] REPORT SERV DATE: 07/24/16 DICTATED BY: DENISA COMER DATE: 07/24/16 REPORT STATUS : Draft TRANSCRIBED BY: MODL DATE: 07/24/16 DATE OF ADMISSION: 07/24/2016 CHIEF COMPLAINT: Increased abdominal distention and discomfort with peripheral edema and shortness of breath for a couple of weeks, getting progressively worse over the last week. HISTORY OF PRESENT ILLNESS: This is a very pleasant 60-year-old gentleman with past medical history consistent with lung adenocarcinoma with prior lobectomy, still under Dr. 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 At that time, he has seen Dr. Dyson and underwent also paracentesis that has been presenting today to [facility] with increasing abdominal distention, moderate discomfort and pain, no radiation, but the abdominal distention got progressively worse to the point that the patient presented today to [facility]. He was supposed to follow up with the GI doctor in [place] tomorrow. He does not know the name. However, due to the progressive of the symptoms, he came to [facility]. It is important to note that the patient has been discharged on diuretics in last hospitalization, but he has been experiencing like cramps, and as a result, he is not on any diuretics currently. The patient has no diarrhea, actually in fact constipation. No nausea or vomiting. He did have some decreased appetite as well as shortness of breath, but no fever, no chills, no cough, no sputum production, no other complaints. Mostly, the symptoms got progressively worse with his abdominal distention and leg swelling, and as a result that he has been presenting today to [facility], and after initial evaluation, Hospitalist Service has been asked for admission, further evaluation, and treatment. PAST MEDICAL HISTORY: Significant with cirrhosis of the liver secondary to EtOH with ascites, lung cancer with metastatic to the lymph nodes and thyroid, obesity, hypertension, prior history of COPD, pancytopenia, and hyperlipidemia. PAST SURGICAL HISTORY: Include right lobectomy, also cholecystectomy, skin cancer removal of the left wrist, and nasoseptal repair. SOCIAL HISTORY: He is a prior smoker, but he quit in 2011. He also has a history of EtOH abuse, but he quit about two years ago. No IV drugs. FAMILY HISTORY: Significant for heart disease and cancer. ALLERGIES: HE IS ALLERGIC TO JOHN, PENICILLIN, SULFA, ERYTHROMYCIN, LASIX, AND BUMEX. MEDICATIONS AT HOME: Include Proventil, Norvasc, vitamin B12, Valium, vitamin D, folic acid, Mucinex, magnesium oxide, Aleve, omega-3 fatty acid, Roxicodone, Protonix, potassium chloride, Pravachol, tocopherol, Demadex, magnesium citrate, and nasal over the counter. REVIEW OF SYSTEMS: A 14-point review of systems has been obtained and pertinent positive has been listed into History And Physical [address] [address] NAME: BAILEY QUESADA : 51 STATUS : ADM IN [facility]#: [id number] AGE: 60 ADM/REG DATE : 07/24/16 MR#: [id number] REPORT SERV DATE: 07/24/16 DICTATED BY: DENISA COMER DATE: 07/24/16 REPORT STATUS : Draft TRANSCRIBED BY: DORINA DATE: 07/24/16 the history of present illness. Otherwise, negative except those underlying above. PHYSICAL EXAMINATION: VITAL SIGNS: Currently, the patient is afebrile. Blood pressure is 130/72, heart rate 85, respiratory rate 20, and saturating 98% on room air. GENERAL: He is a very pleasant, well-developed, well-nourished gentleman, in no acute distress. He is alert and oriented x3. He is nonfocal. He follows commands appropriately. HEENT: Shows pupils equal, round, and reactive to light. Extraocular movements intact. NECK: No JVD. No lymphadenopathy. No thyromegaly appreciated. CHEST: Eval shows bilateral air entry. Clear anteroposterior. Decreased breath sounds bibasilarly. No wheezes, crackles, or rhonchi appreciated. CARDIOVASCULAR: Regular rate and rhythm. S1, S2 positive. No S3, no S4. No murmurs, rubs, or gallops appreciated. ABDOMEN: Soft, distended with obvious ascites and positive fluid wave. Bowel sounds are positive, distant. Nontender. No guarding. No rebound. EXTREMITIES: No clubbing, cyanosis. Plus edema. NEUROLOGIC: He is alert and oriented x3. He is nonfocal. He follows commands appropriately. LABORATORY DATA: Labs from today include sodium 137, potassium 4.4, chloride 104, CO2 of 28, BUN 9, creatinine 0.83, glucose is 164. His lipase is 87. Troponin is less than 0.02. His ammonia is 49. BNP 184.9. His lactate is 1.5. His white count is 3.6, hemoglobin 10.3, hematocrit 31.8, and platelets are 84. His INR is 1.4. His UA has been negative, and his CT of the abdomen and pelvis without contrast performed in the emergency room has shown that the patient has bilateral diffuse cavitary lung nodules with solid 1.4 cm in the central left base and large volume ascites with splenomegaly and suspected underlying cirrhosis and chronic compression fractures. ASSESSMENT: 1. This is a very pleasant 60-year-old gentleman with ascites and cirrhosis of the liver with peripheral edema. 2. Pancytopenia. 3. History of lung cancer with metastatic disease to the thyroid. 4. Hypertension. 5. History of chronic obstructive pulmonary disease. 6. Obesity. PLAN: 1. The patient is going to be admitted to Hospitalist Service. We are going to schedule paracentesis in the morning. In addition, I am going to start him on Bumex IV for right now and Aldactone. We are going to reconsult Dr. Dyson for further evaluation. We will continue Protonix. Strict I's and O's. Strict daily weights. Continue pain control as well. Continue supportive care. 2. Chronic pain. We will continue his oxycodone p.r.n. morphine as well. 3. History of lung cancer with prior lobectomy and chemotherapy. I am going to check a CT of the chest as well as consult [facility] for further recommendation. 4. History of hypertension. We will continue his Norvasc and provide p.r.n. hydralazine History And Physical [address] [address] NAME: BAILEY QUESADA : 51 STATUS : ADM IN [facility]#: [id number] AGE: 60 ADM/REG DATE : 07/24/16 MR#: [id number] REPORT SERV DATE: 07/24/16 DICTATED BY: DENISA COMER DATE: 07/24/16 REPORT STATUS : Draft TRANSCRIBED BY: DORINA DATE: 07/24/16 as needed. 5. COPD. We will provide nebulizer p.r.n. 6. History of hypothyroidism. We are going to check a TSH and a free T4 right now. 7. Obesity. 8. We are going to provide reasonable pain and nausea control as well as GI and DVT prophylaxis with SCDs. That has been discussed extensively with the patient. All the questions have been answered in full. The patient is remaining full code according to prior wishes well stated. It is worthwhile to note that the patient is going to be followed up by Dr. Frank Oliveira. CF/DORINA Denisa Comer M.D. / [id number] CC: MD FRANK Pradhan BRENDA L
[2016-07-24 09:59] LABS: BASOPHILS 0.3 %; BASOPHILS ABSOLUTE 0.01 10/3/uL (0.0-0.16); EOSINOPHILS 0.8 %; EOSINOPHILS ABSOLUTE 0.03 10/3/uL (0.0-0.53); HEMOGLOBIN 10.3 g/dL (13.6-17.8); IMMATURE GRANULOCYTES 0.3 %; IMMATURE GRANULOCYTES ABSOLUTE 0.01 10/3/uL (0.0-0.11); LYMPHOCYTES 21.1 %; LYMPHOCYTES ABSOLUTE 0.76 10/3/uL (0.67-4.30); MEAN CORPUS HGB CONC 32.4 g/dL (32.0-36.0); MEAN CORPUSCULAR HEMOGLOB 28.5 pg (26.0-34.0); MEAN CORPUSCULAR VOLUME 88.1 fL (80-100); MEAN PLATELET VOLUME 9.5 fL (9.2-13.0); MONOCYTES 10.8 %; MONOCYTES ABSOLUTE 0.39 10/3/uL (0.21-1.20); NEUTROPHILS 66.7 %; PLATELET COUNT 84 10/3/uL (150-400); RBC DISTRIBUTION WIDTH 14.9 % (12.0-16.0); RED CELL COUNT 3.61 10/6/uL (4.7-6.1)
[2016-07-24 10:03] LABS: ER CBC TAT 0 Hrs 08 MinsNP; HEMATOCRIT 31.8 % (40.0-51.0); MANUAL DIFF NO %; WHITE BLOOD CELLS 3.6 10/3/uL (4.5-10.5)
[2016-07-24 10:09] LABS: INTERNATIONAL NORMAL RATI 1.4 UNITS (-); PARTIAL THROMBO TIME 34.6 SEC (22.5-37.2)
[2016-07-24 10:16] LABS: BUN (BLOOD UREA NITROGEN) 9 MG/DL (6-23); CHEST PAIN PROFILE TAT 0 Hrs 21 Mins; CHLORIDE, SERUM 104 MMOL/L (96-112); CO2 (CARBON DIOXIDE) 28 MMOL/L (24-34); CREATININE 0.83 MG/DL (0.70-1.30); GFR AFRICAN AMERICAN 109 ML/MIN (>=60); GFR NON AFRICAN AMERICAN 94 ML/MIN (>=60); POTASSIUM, SERUM 4.4 MMOL/L (3.5-5.3); SODIUM, SERUM 137 MMOL/L (135-148); TROPONIN I <0.02 NG/ML (<0.05)
[2016-07-24 10:18] LABS: GLUCOSE, SERUM 164 MG/DL (60-99)
[2016-07-24 12:10] LABS: ASCORBIC ACID (UR NOT ORDER) NEG (NEG); BILIRUBIN, URINE NEGATIVE (NEG); ER URINALYSIS TAT 0 Hrs 08 Mins; KETONE, URINE TRACE MG/DL (NEG); LEUKOCYTE ESTERASE(NOT OR NEG (NEG); NITRITE (URINE) NEG (NEG); WBC (NOT ORDERED) (RFLEX) 1 (0-5)
[2016-07-24] MEDS ORDERED: DEMA10T PO (12:59)
[2016-07-24] MEDS ORDERED: PRAVACHOL40 MG PO (13:00)
[2016-07-24] MEDS ORDERED: KLOR-CON 1010 MEQ PO (13:00)
[2016-07-24] MEDS ORDERED: FOLIC PO (13:00)
[2016-07-24] MEDS ORDERED: PROVHFA INH (13:01)
[2016-07-24] MEDS ORDERED: ROXICODONE15 MG PO (13:02)
[2016-07-24] MEDS ORDERED: PROTONIX PO (13:02)
[2016-07-24] MEDS ORDERED: NORV5 PO (13:03)
[2016-07-24] MEDS ORDERED: MAGOX4 PO (13:04)
[2016-07-24] MEDS ORDERED: FISH OIL1200 MG PO (13:05)
[2016-07-24] MEDS ORDERED: VITE PO (13:05)
[2016-07-24] MEDS ORDERED: V5 PO (13:06)
[2016-07-24] MEDS ORDERED: VITD PO (13:06)
[2016-07-24] MEDS ORDERED: MUCINEX600 MG PO (13:07)
[2016-07-24] MEDS ORDERED: MAGNESIUM CITRATE PO (13:08)
[2016-07-24] MEDS ORDERED: ALEVE220 MG PO (13:09)
[2016-07-24] MEDS ORDERED: NASAL SPRAY OTC NAS (13:10)
[2016-07-24] MEDS ORDERED: ALBUTEROL0.083 % INH (13:12)
[2016-07-24] MEDS ORDERED: B121000P IM (13:13)
[2016-07-24 17:07] LABS: INTERNATIONAL NORMAL RATI 1.4 UNITS (-); PROTIME (NOT ORD) 16.9 SEC (12.0-14.5)
[2016-07-24 17:08] LABS: PARTIAL THROMBO TIME 34.9 SEC (22.5-37.2)
[2016-07-24 17:55] LABS: DIRECT BILIRUBIN 0.2 MG/DL (0.0-0.4); FREE T4 1.52 NG/DL (0.76-1.46); INDIRECT BILIRUBIN(NOT ORDER) 0.5 MG/DL (0.1-0.9); PHOSPHORUS, SERUM 2.8 MG/DL (2.5-4.5); TOTAL BILIRUBIN 0.7 MG/DL (0-1.2)
[2016-07-24 17:58] LABS: FOLATE 25.3 NG/ML (>5.2); TOTAL PROTEIN 6.5 G/DL (6.0-8.5); ULTRASENSITIVE TSH 2.04 MCIU/ML (0.358-3.740)
[2016-07-25 04:26] LABS: BASOPHILS 0.2 %; BASOPHILS ABSOLUTE 0.01 10/3/uL (0.0-0.16); EOSINOPHILS 1.7 %; EOSINOPHILS ABSOLUTE 0.07 10/3/uL (0.0-0.53); HEMATOCRIT 30.8 % (40.0-51.0); HEMOGLOBIN 9.9 g/dL (13.6-17.8); IMMATURE GRANULOCYTES 0.2 %; IMMATURE GRANULOCYTES ABSOLUTE 0.01 10/3/uL (0.0-0.11); LYMPHOCYTES 25.8 %; LYMPHOCYTES ABSOLUTE 1.08 10/3/uL (0.67-4.30); MEAN CORPUS HGB CONC 32.1 g/dL (32.0-36.0); MEAN CORPUSCULAR HEMOGLOB 28.5 pg (26.0-34.0); MEAN CORPUSCULAR VOLUME 88.8 fL (80-100); MEAN PLATELET VOLUME 10.6 fL (9.2-13.0); MONOCYTES 12.6 %; MONOCYTES ABSOLUTE 0.53 10/3/uL (0.21-1.20); NEUTROPHILS 59.5 %; NEUTROPHILS ABSOLUTE 2.49 10/3/uL (2.02-8.40); PLATELET COUNT 103 10/3/uL (150-400); RBC DISTRIBUTION WIDTH 14.8 % (12.0-16.0); RED CELL COUNT 3.47 10/6/uL (4.7-6.1); WHITE BLOOD CELLS 4.2 10/3/uL (4.5-10.5)
[2016-07-25 04:28] LABS: MANUAL DIFF NO %
[2016-07-25 04:29] LABS: INTERNATIONAL NORMAL RATI 1.4 UNITS (-)
[2016-07-25 04:48] LABS: A/G RATIO 0.5 (0.7-1.9); ALBUMIN 1.9 G/DL (3.5-5.0); BUN (BLOOD UREA NITROGEN) 10 MG/DL (6-23); CALCIUM, SERUM 9.2 MG/DL (8.5-10.4); CHLORIDE, SERUM 102 MMOL/L (96-112); CO2 (CARBON DIOXIDE) 27 MMOL/L (24-34); CREATININE 0.88 MG/DL (0.70-1.30); GFR AFRICAN AMERICAN 107 ML/MIN (>=60); GFR NON AFRICAN AMERICAN 92 ML/MIN (>=60); GLOBULIN 4.2 G/DL (2.5-4.1); POTASSIUM, SERUM 4.1 MMOL/L (3.5-5.3); SGOT(AST) 42 U/L (5-40); SGPT(ALT) 16 U/L (5-65); SODIUM, SERUM 135 MMOL/L (135-148); TOTAL BILIRUBIN 0.7 MG/DL (0-1.2); TOTAL PROTEIN 6.1 G/DL (6.0-8.5)
[2016-07-25 04:50] LABS: ALKALINE PHOSPHATASE 110 U/L (45-117); GLUCOSE, SERUM 94 MG/DL (60-99)
[2016-07-25 11:59] LABS: AMYLASE BODY FLUID 13 U/L; BF ALBUMIN 0.9 G/DL; BF BILIRUBIN TOTAL 0.3 MG/DL; BODY FLUID TRIGLYCERIDE 29 MG/DL; GLUCOSE BODY FL (NOT ORD) 107 MG/DL; LDH BODY FLUID (NOT ORD) 46 U/L; PROTEIN BODY FLUID 2.2 G/DL
[2016-07-25 12:04] LABS: BD FL LYMPH (NOT ORD) 56 %; BF BASO (NOT OF) 0 %; BF LARGE MONONUCLEAR 37 %; BODY FLUID EOS (NOT ORD) 0 %; BODY FLUID SEG (NOT ORD) 7 %
[2016-07-25 12:05] LABS: BD FL SOURCE (NOT ORD) PERITONEAL ASCITES
[2016-07-25 14:09] LABS: BF TOTAL CELL CT (NOT ORD 443 /MM3; BODY FLUID RBC (NOT ORD) 121 /MM3
[2016-07-26] MEDS ORDERED: SPIR100 PO (09:55)
[2016-07-26] MEDS ORDERED: L40 PO (09:56)
[2016-07-26 10:26] LABS: HEPATITIS C ANTIBODY NON-REACTIVE (NON-REACT)
[2016-07-26 10:27] LABS: HEPATITIS B CORE AB IGM NON-REACTIVE (NON-REAC)
[2016-07-26 10:28] LABS: HEPATITIS B SURFACE ANTIGEN NON-REACTIVE (NON-REACT)
[2016-07-26 10:30] LABS: HEP A ANTIBODY IGM NON-REACTIVE (NON-REACT)
== END 2016-07-26 16:10 | disposition home or self-care (01) | DRG 433 ==
LOC: ER 09:05 → 4SO 15:03
PROVIDERS: Internal Medicine; Internal Medicine Gastroenterology; Nurse Practitioner Family
PROC: 0W9G3ZZ Drainage of Peritoneal Cavity, Percutaneous Approach (ICD-10-PCS; principal; 2016-07-25)
PROC: BW40ZZZ Ultrasonography of Abdomen (ICD-10-PCS; principal; 2016-07-25)
DX: K70.31 Alcoholic cirrhosis of liver with ascites (principal); D61.818 Other pancytopenia; C77.1 Secondary and unspecified malignant neoplasm of intrathoracic lymph nodes; C79.89 Secondary malignant neoplasm of other specified sites; C34.11 Malignant neoplasm of upper lobe, right bronchus or lung; D69.6 Thrombocytopenia, unspecified; I10 Essential (primary) hypertension; D63.0 Anemia in neoplastic disease; J44.9 Chronic obstructive pulmonary disease, unspecified; E78.5 Hyperlipidemia, unspecified; G89.29 Other chronic pain; E66.9 Obesity, unspecified; E03.9 Hypothyroidism, unspecified; K21.9 Gastro-esophageal reflux disease without esophagitis; F31.9 Bipolar disorder, unspecified; Z79.899 Other long term (current) drug therapy; Z87.891 Personal history of nicotine dependence; Z85.118 Personal history of other malignant neoplasm of bronchus and lung; Z85.828 Personal history of other malignant neoplasm of skin; Z90.2 Acquired absence of lung [part of]; Z88.0 Allergy status to penicillin; Z88.2 Allergy status to sulfonamides; Z88.1 Allergy status to other antibiotic agents; Z88.8 Allergy status to other drugs, medicaments and biological substances; Z68.37 Body mass index [BMI] 37.0-37.9, adult; E55.9 Vitamin D deficiency, unspecified; Z51.5 Encounter for palliative care
CPT/HCPCS: 49083; 71010; 71250; 74176; 80048; 80053; 80074; 80076; 81001; 82042; 82140; 82150; 82247; 82607; 82728; 82746; 82945; 83036; 83540; 83550; 83605; 83615; 83690; 83735; 83880; 83986; 84100; 84157; 84439; 84443; 84478; 84484; 85025; 85610; 85730; 87040; 87070; 87205; 88112; 88305; 89051; 93005; 94640; 96374; 99285; A9270-GY; J2405; P9047